=== PATIENT | male | born 1960 | race Caucasian/White ===

== ENCOUNTER 2018-02-17 04:26 | Inpatient (IN) ==
--- NOTE | 2018-02-17 05:53 | XR ---
EXAM DATE: 02/17/2018 5:47 AM EST AGE/SEX: 57 years / Male INDICATIONS: Chest pain. Shortness of breath. CLINICAL DATA: This is the patient's initial encounter. Patient reports that signs and symptoms have been present for 2 months and indicates a pain score of 9/10. MEDICAL/SURGICAL HISTORY: Carcinoma, lung. None. COMPARISON: No prior exams available for comparison. FINDINGS: A single AP view of the chest demonstrates an 8.4 cm left upper lobe pulmonary mass. The lungs are ot herwise clear. No effusions. Heart is normal in size. A mildly degenerative thoracic spine. CONCLUSION: 8.4 cm left upper lobe pulmonary mass. Electronically signed by: Eran Feldman MD Board Certified Radiologist 02/17/2018 5:51 AM EST
[2018-02-17 06:27] LABS: Baso % (Auto) 0.2 % (0.0-2.0); Eos # (Auto) 0.1 th/mm3 (0.0-0.4); Eos % (Auto) 0.5 % (0.0-4.0); Hematocrit 24.8 % (39.0-51.0); Hemoglobin 8.3 gm/dL (13.0-17.0); Lymph # (Auto) 1.3 th/mm3 (1.0-4.8); Lymph % (Auto) 6.9 % (9.0-44.0); Mean Corpuscular HGB Conc 33.7 % (32.0-36.0); Mean Corpuscular Hemoglobin 28.9 pg (27.0-34.0); Mean Corpuscular Volume 85.9 fL (80.0-100.0); Mean Platelet Volume 8.1 fL (7.0-11.0); Mono # (Auto) 0.9 th/mm3 (0.0-0.9); Mono % (Auto) 4.8 % (0.0-8.0); Neut # (Auto) 16.8 th/mm3 (1.8-7.7); Neut % (Auto) 87.6 % (16.0-70.0); Platelet Count 584 th/mm3 (150-450); Red Blood Count 2.88 mil/mm3 (4.50-5.90); Red Cell Distribution Width 14.8 % (11.6-17.2); White Blood Count 19.2 th/mm3 (4.0-11.0)
--- NOTE | 2018-02-17 06:37 | ED ---
HPI General Chief Complaint: Chest Pain Stated Complaint: Back pain Time Seen by Provider: 02/17/18 04:59 Source: patient and old records reviewed Mode of arrival: ambulatory Limitations: no limitations History of Present Illness HPI narrative: 57 M c/o chest pain for approx one week. + Radiation to the back reported. No fever or cough. Pt has hx RLE thrombus and is on Xarelto. + Exertional component. Pain can be severe at times. Pt reports recent diagnosis L lung mass. + Smoking history. Pt has not started CTX/RTX. Related Data Home Medications Medication Instructions Recorded Confirmed rivaroxaban [Xarelto] 15 mg PO BID 02/17/18 02/17/18 rosuvastatin 20 mg PO DAILY 02/17/18 02/17/18 Allergies Allergy/AdvReac Type Severity Reaction Status Date / Time No Known Allergies Allergy Verified 02/17/18 04:50 Review of Systems ROS: all other systems reviewed are negative [facility] Medical History Medical History Dvt femoral (deep venous thrombosis) (Acute) Lung cancer (Acute) Surgical History Surgical History Above knee amputation of right lower extremity (Acute) Social History Social History Substance History: No History of Abuse Second Hand Smoke Exposure: No Smoking Status: Former smoker How Often Do You Have a Drink Containing Alcohol: Never [facility] within the Last 8 Weeks: No Recent Out of Country Travel within the Last 8 Weeks: Yes Immunization History Tetanus Immunization: Unsure Exam Narrative Exam Narrative: GENERAL: 57 M, pleasant, moderate distress 2/2 pain and/or anxiety SKIN: Focused skin assessment warm/dry. HEAD: Atraumatic. Normocephalic. EYES: Pupils equal and round. No scleral icterus. No injection or drainage. ENT: No nasal bleeding or discharge. Mucous membranes pink and moist. NECK: Trachea midline. No JVD. CARDIOVASCULAR: Regular rate and rhythm. No murmur appreciated. RESPIRATORY: No accessory muscle use. Clear to auscultation. Breath sounds equal bilaterally. GASTROINTESTINAL: Abdomen soft, non-tender, nondistended. Hepatic and splenic margins not palpable. MUSCULOSKELETAL: RLE AKA. LLE normal. NEUROLOGICAL: Awake and alert. No obvious cranial nerve deficits. Motor grossly within normal limits. Normal speech. PSYCHIATRIC: Appropriate mood and affect; insight and judgment normal. Course Initial Documented Vital Signs Temperature 98.0 F 02/17/18 04:50 Pulse Rate 71 02/17/18 04:50 Respiratory Rate 18 02/17/18 04:50 Blood Pressure 140/76 02/17/18 04:50 Pulse Oximetry 100 02/17/18 04:50 Last Documented Vital Signs Temperature 98.7 F 02/17/18 20:00 Pulse Rate 72 02/17/18 20:00 Respiratory Rate 17 02/17/18 20:00 Blood Pressure 125/59 L 02/17/18 20:00 Pulse Oximetry 98 02/17/18 20:00 Sign Out Sign Out Data: Patient Sign Out occurred on 02/17/18 at 07:11. Patient's care was discussed, and care was transferred from Omari Noland MD to Alyssia Agosto. Sign Out Comment: Hb is 8.6 down from 13 in October. Last updated by Omari Noland MD at 02/17/18 06:57 Post-Handoff Eval: Patient is 57-year-old male who was presents to the emergency room with complaints of chest pain. Patient reports that he has been having intermittent chest pains for the past 4 months. Patient reports at this time, chest pain has been ongoing for the past 4 days. Patient reports that it is getting worse. Patient reports the chest pain radiates from his left chest to his back. Patient reports that pain feels a pressure but also a sharp and stabbing sensation to his chest. Patient reports that he was recently diagnosed with lung cancer as well as a DVT to his right lower extremity. Reports that he was told that he has venous insufficiency is to his right lower extremity so he went to [place] and had surgery. The surgery came with complications and he ended up with an above-knee amputation. Lab work as well as CTA was ordered to rule out aortic dissection. Ultimately, plan for admission to the hospital given his drop in his hemoglobin. Medical Decision Making MDM Narrative Medical decision making narrative: EKG: sinus, rate 74, sinus arrhythmia, normal During the course of the patients emergency department visit, the patients history, examination, and differential diagnosis were reviewed with the patient. The patient was placed on a hydraulic press operator with oximetry and frequent blood pressure monitoring. The patient had an IV access obtained and blood work sent for analysis. The patient was initially provided aspirin The patients laboratory studies were reviewed Radiology studies were reviewed and remarkable for: NO aortic dissection, patient does have a small pulmonary emboli, he also has a malignant left upper lobe mass with direct invasion into the adjacent vertebrae and ribs and posterior elements characteristic of metastatic disease with invasion into the mediastinum. Patient was notified of concerning findings on the CT report, he was given a copy of the studies. Reports that he does have follow up with an oncologist at [facility] tomorrow afternoon. Patient is currently chest pain-free at this time. Patient is currently taking Xarelto as he does have a DVT, - he does have a small PE. Plan to admit him to the hospital for further workup. Case reviewed with FP residents - accepts patient under Dr. Sandoval Medical Screen Exam Complete: Yes Emergency Medical Condition: Yes Medical Records Medical records reviewed: Yes I reviewed the patient's medical records. Lab Data Lab results reviewed: Yes I reviewed the patient's lab results. Result diagrams: 02/17/18 06:05 02/17/18 06:05 Lab Results 02/17/18 02/17/18 02/17/18 Range/Units 06:05 06:05 09:31 WBC 19.2 H (4.0-11.0) th/mm3 RBC 2.88 L (4.50-5.90) mil/mm3 Hgb 8.3 L (13.0-17.0) gm/dL Hct 24.8 L (39.0-51.0) % MCV 85.9 (80.0-100.0) fL MCH 28.9 (27.0-34.0) pg MCHC 33.7 (32.0-36.0) % RDW 14.8 (11.6-17.2) % Plt Count 584 H (150-450) th/mm3 MPV 8.1 (7.0-11.0) fL Neut % (Auto) 87.6 H (16.0-70.0) % Lymph % (Auto) 6.9 L (9.0-44.0) % Garland % (Auto) 4.8 (0.0-8.0) % Eos % (Auto) 0.5 (0.0-4.0) % Baso % (Auto) 0.2 (0.0-2.0) % Neut # (Auto) 16.8 H (1.8-7.7) th/mm3 Lymph # (Auto) 1.3 (1.0-4.8) th/mm3 Garland # (Auto) 0.9 (0.0-0.9) th/mm3 Eos # (Auto) 0.1 (0.0-0.4) th/mm3 Baso # (Auto) 0.0 (0.0-0.2) th/mm3 WBC Differential . Differential Comment Auto diff final PT 13.2 H (9.8-11.6) sec INR 1.3 Ratio APTT 27.4 (23.4-31.7) sec Sodium 137 (136-145) meq/L Potassium 3.6 (3.5-5.1) meq/L Chloride 104 (98-107) meq/L Carbon Dioxide 25.8 (21.0-32.0) meq/L Anion Gap 7 (5-15) meq/L BUN 7 (7-18) mg/dL Creatinine 0.74 (0.60-1.30) mg/dL Estimated GFR Greater than 89 (>89) mL/min Random Glucose 124 H (74-106) mg/dL Calcium 11.7 H* (8.5-10.1) mg/dL Calcium Adj for Albumin 12.7 H* (8.5-10.1) mg/dL Total Bilirubin 0.3 (0.2-1.0) mg/dL AST 14 L (15-37) U/L ALT 15 (12-78) U/L Alkaline Phosphatase 131 H (45-117) U/L Troponin I Less than 0.02 L (0.02-0.05) ng/mL Total Protein 8.0 (6.4-8.2) g/dL Albumin 2.8 L (3.4-5.0) g/dL Lipase 73 (73-393) U/L 02/17/18 02/17/18 Range/Units 11:00 16:05 WBC (4.0-11.0) th/mm3 RBC (4.50-5.90) mil/mm3 Hgb (13.0-17.0) gm/dL Hct (39.0-51.0) % MCV (80.0-100.0) fL MCH (27.0-34.0) pg MCHC (32.0-36.0) % RDW (11.6-17.2) % Plt Count (150-450) th/mm3 MPV (7.0-11.0) fL Neut % (Auto) (16.0-70.0) % Lymph % (Auto) (9.0-44.0) % Garland % (Auto) (0.0-8.0) % Eos % (Auto) (0.0-4.0) % Baso % (Auto) (0.0-2.0) % Neut # (Auto) (1.8-7.7) th/mm3 Lymph # (Auto) (1.0-4.8) th/mm3 Garland # (Auto) (0.0-0.9) th/mm3 Eos # (Auto) (0.0-0.4) th/mm3 Baso # (Auto) (0.0-0.2) th/mm3 WBC Differential Differential Comment PT (9.8-11.6) sec INR Ratio APTT (23.4-31.7) sec Sodium (136-145) meq/L Potassium (3.5-5.1) meq/L Chloride (98-107) meq/L Carbon Dioxide (21.0-32.0) meq/L Anion Gap (5-15) meq/L BUN (7-18) mg/dL Creatinine (0.60-1.30) mg/dL Estimated GFR (>89) mL/min Random Glucose (74-106) mg/dL Calcium (8.5-10.1) mg/dL Calcium Adj for Albumin (8.5-10.1) mg/dL Total Bilirubin (0.2-1.0) mg/dL AST (15-37) U/L ALT (12-78) U/L Alkaline Phosphatase (45-117) U/L Troponin I Less than 0.02 L Less than 0.02 L (0.02-0.05) ng/mL Total Protein (6.4-8.2) g/dL Albumin (3.4-5.0) g/dL Lipase (73-393) U/L Imaging Data Attestation: I personally reviewed and interpreted this imaging study as follows : Radiologist's impression: Abdomen/Pelvis CT 02/17/18 00:00 CONCLUSION: No metastatic disease or other acute abnormality within the abdomen or pelvis. Cervical Spine X-Ray 02/17/18 00:00 CONCLUSION: Chest X-Ray 02/17/18 05:24 CONCLUSION: 8.4 cm left upper lobe pulmonary mass. Thoracic Aorta CT 02/17/18 07:25 CONCLUSION: 1. Malignant left upper lobe mass with direct invasion of the adjacent vertebrae and ribs and posterior elements characteristic of local spread of metastatic disease with direct invasion of the mediastinum. 2. Metastatic adenopathy within the left hilum and mediastinum. 3. There are lung nodules on the left side highly suspicious for metastatic disease as well. 4. Small pulmonary embolus left lower lobe pulmonary artery. ECG Data EKG Prior to Arrival: No Attestation: I personally reviewed and interpreted this ECG as follows: Prior ECG tracings: available for review Interpretation: EKG at 0556: NSR at 74bpm, qt/qtc: 362/390, no acute st or t wave changes Discharge Plan Discharge Disposition Patient Disposition: ED Admit(ED Internal Use Only) Discharge Condition Condition: Stable Discharge Order Discharge Orders: ED Use Only Admit Order (Routine); Ordered 02/17/18 Ordered By: Alyssia Agosto Discharge Details Diagnosis: Chest pain, Pulmonary emboli, Lung mass Physicians Team ED Provider: Alyssia Agosto Primary Care Provider: UNKNOWN, Attending Provider: Eddie Sandoval Other Providers: Mario Martinez Status ED Status: Left Department Discharge Information Discharge Date/Time: 02/17/18 12:45 Addendum entered and electronically signed by Alyssia Agosto 02/17/18 09:16: patient was started on heparin gtt for tx of small pe
[2018-02-17 07:08] LABS: Alanine Aminotransferase 15 U/L (12-78); Albumin 2.8 g/dL (3.4-5.0); Alkaline Phosphatase 131 U/L (45-117); Anion Gap 7 meq/L (5-15); Aspartate Aminotransferase 14 U/L (15-37); Blood Urea Nitrogen 7 mg/dL (7-18); Calcium 11.7 mg/dL (8.5-10.1); Carbon Dioxide 25.8 meq/L (21.0-32.0); Chloride 104 meq/L (98-107); Glomerular Filtration Rate Greater Than 89 mL/min (>89); Glucose,Random 124 mg/dL (74-106); Lipase 73 U/L (73-393); Potassium 3.6 meq/L (3.5-5.1); Sodium 137 meq/L (136-145)
[2018-02-17] MEDS ORDERED: Etomidate Inj 20 MG/10 ML Ampul IV.PUSH ONE (07:22)
--- NOTE | 2018-02-17 08:39 | CT ---
EXAM DATE: 02/17/2018 8:23 AM EST AGE/SEX: 57 years / Male INDICATIONS: Chest pain for five days. CLINICAL DATA: This is the patient's initial encounter. Patient reports that signs and symptoms have been present for 4 - 6 days and indicates a pain score of 7/10. MEDICAL/SURGICAL HISTORY: Deep venous thrombosis. Carcinoma, lung. . Right leg amputation. RADIATION DOSE: 5.27 CTDI (mGy) COMPARISON: No prior exams available for comparison. TECHNIQUE: Volumetric scanning was performed using a multi-row detector CT scanner during bolus infu temitope of 99 ml Omnipaque 350 (iohexol) nonionic water-soluble contrast as a single exam dose. The da ta was post processed with a variety of visualization algorithms including full volume maximum intens ity projection, multi-planar sliding thin slab reformation, curved planar reformation, and surface re ndering techniques. Using automated exposure control and adjustment of the mA and/or kV according to patient size, radiation dose was kept as low as reasonably achievable to obtain optimal diagnostic q uality images. DICOM format image data is available electronically for review and comparison. FINDINGS: There are COPD changes in the lungs to a moderate degree and there is a large malignant appearing mas s left upper lobe posteromedial measures 6.9 cm in size. The malignant mass invades the adjacent ribs and vertebral bodies. Approximate 2.8 cm lytic lesion is seen involving the left side of T3 vertebra e and there is a destructive lesion involving the left posterior third rib. There is also probable in volvement of the T2 vertebrae in addition to posterior elements on the left side at these levels. The re is direct invasion into the posterior portion of the mediastinal as well extending partially into the prevertebral location. There is metastatic adenopathy within the anterior mediastinum measures 1. 3 cm in size with separate adenopathy in the AP window multiple lymph nodes the largest one measures 2.3 cm in size. There is also metastatic adenopathy in the left hilum measures 2.1 cm in size with ad ditional left hilar lymph nodes circumferentially surrounding the left pulmonary arteries. There are additional tiny lymph nodes in pretracheal and subcarinal location most likely benign, however nonspe cific. There appears to be a small pulmonary embolus within one of the left lower lobe pulmonary anil jordy There are 3 separate nodular densities adjacent to one of the left lower lobe measuring 5 mm eac h with approximate 7 mm nodule within lingula. There is extension approximate 5 to 6 mm nodule within lingula as well. There are irregular densities adjacent to right minor fissure and middle lobe proba ble areas of scar. There is no evidence for aortic dissection. Coronary artery calcifications are seen typically seen wi th coronary artery disease and clinical correlation and evaluation is suggested. The takeoff of the celiac SMA and renal arteries appear intact. There is moderate atherosclerotic ranulfo quing at the origin of the right renal artery. There is no evidence for aneurysm. Atherosclerotic ranulfo quing extends into common iliac arteries without any significant stenosis. CONCLUSION: 1. Malignant left upper lobe mass with direct invasion of the adjacent vertebrae and ribs and narrative writer ior elements characteristic of local spread of metastatic disease with direct invasion of the mediast inum. 2. Metastatic adenopathy within the left hilum and mediastinum. 3. There are lung nodules on the left side highly suspicious for metastatic disease as well. 4. Small pulmonary embolus left lower lobe pulmonary artery. Electronically signed by: Rajinder Isaacs MD Board Certified Radiologist 02/17/2018 8:38 AM EST
[2018-02-17] MEDS ORDERED: Heparin Drip 25,000 UNIT/250 ML BAG IV.CONT PRN (08:52)
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
[2018-02-17 09:58] LABS: Activated Partial Thrombo Time 27.4 sec (23.4-31.7); INR 1.3 Ratio; Prothrombin Time 13.2 sec (9.8-11.6)
[2018-02-17] MEDS ORDERED: Acetaminophen 325 MG Tablet PO PRN (10:23)
[2018-02-17] MEDS ORDERED: Bisacodyl 10 MG Supp RECTAL PRN (10:23)
[2018-02-17] MEDS: Sod Chloride 0.9% Inj 1,000 ML IV.CONT SCH ×2 (11:26→21:21)
[2018-02-17] MEDS ORDERED: Ibuprofen 400 MG Tablet PO PRN (12:18)
[2018-02-17] MEDS ORDERED: Naloxone Inj 0.4 MG/ML Vial IV.PUSH PRN (12:18)
[2018-02-17] MEDS: Morphine Inj 4 MG/ML Vial IV.PUSH PRN (14:53)
--- NOTE | 2018-02-17 19:43 | MB ---
cc: Mario Martinez MD DATE: 02/17/2018 ATTENDING PHYSICIAN: ____. REASON FOR CONSULTATION: Oncology consult to render opinion regarding the patient with lung mass. HISTORY OF PRESENT ILLNESS: The patient is a 57-year-old male from [place] who presented to the hospital complaining of increased left chest wall pain and back pain. He was admitted to [facility] around 10/2017 for evaluation of right leg pain. He was found to have right lower extremity peripheral arterial disease. During the hospital stay, he was found to have left lung mass. The patient had a biopsy and was told that he had cancer. The patient stated his lung mass was small. He did not have any insurance. He went back to [place] to have a procedure done for the peripheral arterial disease. He stated that he was supposed to come back after his procedure to follow up with his oncologist. His right lower extremity surgery was complicated and he ended up with an above-knee amputation. He came back to the [facility] on 02/10/2018. He stated he has been having left chest wall pain for at least 3 months. However, over the last 1 week, his pain has increased significantly he came into the hospital because of worsening pain. He has mild shortness of breath. He denies significant cough. He denies any focal numbness or weakness of his extremities. He denies any bowel or urinary incontinence. He has lost about 10 pounds. He denies any fever or chills. He has had no headache or visual changes. He denies nausea, vomiting. Denies any abdominal pain. On presentation, A CT angiogram showed a large left upper lobe lung mass invaded to the vertebral body and posterior ribs with multiple lung nodules in the left lower lobe. PAST MEDICAL HISTORY: 1. Lung cancer. 2. Peripheral artery disease. 3. Hyperlipidemia. 4. Right lower extremity deep venous thrombosis. PAST SURGICAL HISTORY: 1. Recent right above-knee amputation 01/08/2018. 2. Facial reconstruction surgery. 3. Right ribs reconstructive surgery. FAMILY HISTORY: No cancer. Two sisters and 3 children, all healthy. Parents both alive. SOCIAL HISTORY: Smoked a pack a day for 20 years, quit about a year ago. He also quit alcohol. He lives with his in [place]. ALLERGIES: NO KNOWN DRUG ALLERGIES. CURRENT MEDICATIONS: 1. Lipitor. 2. Lovenox. 3. Shila-Colace. REVIEW OF SYSTEMS: CONSTITUTIONAL: As above. EYES: Negative. ENT: Negative. CARDIOVASCULAR: Denies chest pressure or palpitation. RESPIRATORY: As above. GASTROINTESTINAL: Negative. GENITOURINARY: Negative. MUSCULOSKELETAL: As above. HEMATOLOGY: Negative. ENDOCRINE: Negative. DERMATOLOGY: Negative. PSYCHIATRIC: Negative. NEUROLOGIC: As above. PHYSICAL EXAMINATION: VITAL SIGNS: Temperature 99, blood pressure 120/60, O2 saturation 100% on room air. GENERAL: He is alert, oriented x 3, no acute distress. HEENT: Atraumatic, normocephalic. Pupils are equal, round, reactive to light. Extraocular muscles are intact. No scleral icterus. Oropharynx dry mucosa. No lesion, no thrush. No mucositis. NECK: No thyromegaly. No palpable mass. LYMPHATIC: No palpable cervical, clavicular, axillary, or groin. CARDIOVASCULAR: Regular. S1, S2 normal. LUNGS: Slight decreased breath sounds left lung. No significant wheezes. ABDOMEN: Soft, nontender. Cannot palpate liver, spleen. EXTREMITIES: Positive clubbing. Right lower extremity above-knee amputation noted. NEUROLOGIC: Nonfocal. SKIN: No rash or petechiae. LABORATORY DATA: Reviewed his blood work drawn during this hospital stay. ASSESSMENT: 1. Left lung mass consistent with lung cancer. He was admitted to [facility] in October. Reportedly, he was found to have a left lung mass and had a biopsy. He was told that he had lung cancer, but he could not provide specific details. He now presented with increased left chest wall pain and back pain. CT showed a large 6.9 cm mass in the left upper lobe, invading the adjacent ribs and vertebral bodies. There was a 2.8 cm lytic lesion involving the left side of the T3 vertebral body. There was also a destructive lesion involving left posterior third rib. There was probable involvement of T2 vertebral body, in addition, the posterior element of left side. There was direct invasion in the posterior portion of the mediastinum, extending partially into the prevertebral location. There was metastatic adenopathy within the anterior mediastinum as well as the left hilum. There are also multiple small nodules in the left lower lobe. This is most consistent with primary non-small cell lung cancer. Clinically, this appeared to be stage IV metastatic disease. We have requested a pathology report from [facility]. If it is unavailable or inconclusive, he is going to need a biopsy of the lung mass. 2. Back pain and left chest wall pain due to the lung mass invading the posterior ribs and vertebral body. There appeared to be a destructive lesion involving the vertebral body. Clinically he has no neurologic symptoms and there is no evidence of cord compression. I am going to have him get an MRI of thoracic spine for further evaluation. If there is cord involvement may need to consult neurosurgery to see if he needs a surgical intervention. The patient likely is going to need palliative radiation. 3. Hypercalcemia, likely due to bone metastasis. We will get a bone scan for further evaluation. We will also check a PTH and a peptide related PTH. He is currently receiving IV fluid hydration. If he still has significant hypercalcemia we will give him Zometa. 4. Anemia. He recently had an above-knee amputation. Anemia, likely due to blood loss. We will proceed with anemia workup. 5. Leukocytosis, likely reactive due to underlying cancer. 6. History of right lower extremity deep venous thrombosis. He has been on Xarelto. He is now on Lovenox. 7. Peripheral arterial disease. 8. Hyperlipidemia. RECOMMENDATIONS: 1. Extensive discussion with the patient and his . 2. Request pathology report from [facility]. 3. Arrange for CT abdomen and pelvis, as well as bone scan. 4. We will get MRI of thoracic spine 5. Consider consulting neurosurgery if there is any evidence of cord involvement. 6. Anemia workup. 7. Consider giving him Zometa if he has persistent hypercalcemia. Thank you, , for asking me to see this patient. MD PAVITHRA Whalen/jovita/garrick , 06:18 PM , 06:38 PM AYE
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
--- NOTE | 2018-02-17 19:45 | CT ---
EXAM DATE: 02/17/2018 7:38 PM EST AGE/SEX: 57 years / Male INDICATIONS: Metastases lung cancer CLINICAL DATA: This is the patient's initial encounter. Patient reports that signs and symptoms have been present for 1 day and indicates a pain score of 0/10. MEDICAL/SURGICAL HISTORY: Deep venous thrombosis. Carcinoma, lung. None. ORAL CONTRAST: No oral contrast ingested. RADIATION DOSE: 6.37 CTDI (mGy) COMPARISON: [facility], CTA THOR ABD AORTA W CONTRAST W 3D, 02/17/2018. . TECHNIQUE: Multiple contiguous axial images were obtained through the abdomen and pelvis following b olus infusion of 69 ml Omnipaque 350 (iohexol) nonionic water-soluble contrast as a single exam dos e. No oral contrast ingested. Using automated exposure control and adjustment of the mA and/or kV ac cording to patient size, radiation dose was kept as low as reasonably achievable to obtain optimal di agnostic quality images. DICOM format image data is available electronically for review and comparis on. FINDINGS: Liver: The liver has a homogeneous density without space-occupying lesion. There is no dilation of th e biliary tree. Spleen: Homogeneous density without enlargement. Pancreas: Unremarkable without mass or calcification. Kidneys: Normal in size and shape. No evidence of mass or hydronephrosis. Adrenal Glands: Unremarkable. Aorta: There is atherosclerosis of the abdominal aorta and branch vessels. No aneurysm. Bowel/Mesentery: The bowel loops are grossly unremarkable. The cecum and sigmoid colon have a normal configuration. Abdominal Wall: Intact. Retroperitoneum: No evidence of adenopathy in the retrocrural, para-aortic, or deep pelvic regions. Bladder: Contours are smooth. Reproductive Organs: No abnormal masses or calcifications seen. Inguinal: The inguinal region is unremarkable without evidence of adenopathy. Bony Structures: No lytic or sclerotic lesion or other acute abnormality seen of the visualized osse ous structures. CONCLUSION: No metastatic disease or other acute abnormality within the abdomen or pelvis. Electronically signed by: Neno Hutson MD Board Certified Radiologist 02/17/2018 7:44 PM EST
--- NOTE | 2018-02-17 21:17 | ECG ---
Date Performed: 02/17/2018 Time Performed: 18:10:26 PTAGE: 57 years EKG: Sinus rhythm WITH SINUS ARRHYTHMIA PACS NORMAL ECG PREVIOUS TRACING : 02/17/2018 11.56 Since the previous tracing, no significant change noted DOCTOR: Lennox Bran Interpretating Date/Time 02/17/2018 21:16:00
[2018-02-17] MEDS: Senna/Docusate Sodium 8.6/50 MG Tablet PO SCH (21:19)
[2018-02-17] MEDS: Enoxaparin Inj 80 MG/0.8 ML Syringe SQ SCH (21:20)
--- NOTE | 2018-02-17 21:37 | ECG ---
Date Performed: 02/17/2018 Time Performed: 11:56:12 PTAGE: 57 years EKG: Sinus rhythm WITH SINUS ARRHYTHMIA NORMAL ECG PREVIOUS TRACING : 02/17/2018 05.56 Since the previous tracing, no significant change noted DOCTOR: Lennox Bran Interpretating Date/Time 02/17/2018 21:35:05
[2018-02-18] MEDS: Morphine Inj 4 MG/ML Vial IV.PUSH PRN (00:10)
[2018-02-18] MEDS: Sod Chloride 0.9% Inj 1,000 ML IV.CONT SCH ×2 (05:42→18:32)
[2018-02-18 06:03] LABS: Baso % (Auto) 0.2 % (0.0-2.0); Eos # (Auto) 0.1 th/mm3 (0.0-0.4); Eos % (Auto) 0.4 % (0.0-4.0); Hematocrit 22.7 % (39.0-51.0); Hemoglobin 7.5 gm/dL (13.0-17.0); Lymph # (Auto) 1.4 th/mm3 (1.0-4.8); Lymph % (Auto) 9.1 % (9.0-44.0); Mean Corpuscular HGB Conc 33.2 % (32.0-36.0); Mean Corpuscular Hemoglobin 28.4 pg (27.0-34.0); Mean Corpuscular Volume 85.7 fL (80.0-100.0); Mean Platelet Volume 8.3 fL (7.0-11.0); Mono # (Auto) 1.1 th/mm3 (0.0-0.9); Mono % (Auto) 6.8 % (0.0-8.0); Neut % (Auto) 83.5 % (16.0-70.0); Platelet Count 526 th/mm3 (150-450); Red Blood Count 2.65 mil/mm3 (4.50-5.90); Red Cell Distribution Width 15.3 % (11.6-17.2); White Blood Count 15.6 th/mm3 (4.0-11.0)
[2018-02-18 06:19] LABS: Alanine Aminotransferase 11 U/L (12-78); Albumin 2.5 g/dL (3.4-5.0); Anion Gap 7 meq/L (5-15); Aspartate Aminotransferase 10 U/L (15-37); Blood Urea Nitrogen 8 mg/dL (7-18); Calcium 11.1 mg/dL (8.5-10.1); Carbon Dioxide 25.9 meq/L (21.0-32.0); Chloride 105 meq/L (98-107); Glomerular Filtration Rate Greater Than 89 mL/min (>89); Glucose,Random 81 mg/dL (74-106); Iron 18 mcg/dL (65-175); Potassium 4.2 meq/L (3.5-5.1); Sodium 138 meq/L (136-145)
[2018-02-18 06:44] LABS: % Iron Saturation 9.2 % (20-50); Alkaline Phosphatase 121 U/L (45-117); Carcinoembryonic Antigen 1.5 ng/mL (0.2-5.0); Ferritin 605 ng/mL (26-388); Folate 10.3 ng/mL (3.1-17.5); Total Iron Binding Capacity 196 mcg/dL (250-450); Total Protein 7.2 g/dL (6.4-8.2); Vitamin B12 607 pg/mL (193-986)
[2018-02-18] MEDS: Senna/Docusate Sodium 8.6/50 MG Tablet PO SCH ×2 (09:36→20:16)
[2018-02-18] MEDS: Enoxaparin Inj 80 MG/0.8 ML Syringe SQ SCH ×2 (09:37→20:15)
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
--- NOTE | 2018-02-18 11:49 | P.PNFP ---
Subjective Interval history: Patient seen and examined today. Patient reports continued pain in his back, however improved at this time following medication administration. Denies nausea, vomiting, fever, chills, don pain, chest pain, shortness breath, lightheadedness, dizziness. Data Warehousing Manager used: Brit #[id number] <Sherly MorganEddie - 02/18/18 14:24> Results - Labs Result diagrams: 02/19/18 03:21 02/19/18 03:21 <JaimeEddie Natasha - 02/19/18 15:29> Abnormal lab results 02/19/18 02/19/18 Range/Units 03:21 03:21 WBC 12.0 H (4.0-11.0) th/mm3 RBC 2.87 L (4.50-5.90) mil/mm3 Hgb 8.0 L (13.0-17.0) gm/dL Hct 25.2 L (39.0-51.0) % MCHC 31.8 L (32.0-36.0) % Plt Count 555 H (150-450) th/mm3 Neut % (Auto) 76.2 H (16.0-70.0) % Neut # (Auto) 9.2 H (1.8-7.7) th/mm3 Calcium 11.6 H* (8.5-10.1) mg/dL Calcium Adj for Albumin 12.7 H* (8.5-10.1) mg/dL AST 12 L (15-37) U/L ALT 11 L (12-78) U/L Albumin 2.6 L (3.4-5.0) g/dL Short CBC 02/19/18 Range/Units 03:21 WBC 12.0 H (4.0-11.0) th/mm3 Hgb 8.0 L (13.0-17.0) gm/dL Hct 25.2 L (39.0-51.0) % Plt Count 555 H (150-450) th/mm3 BMP 02/19/18 03:21 Sodium 138 Potassium 3.8 Chloride 105 Carbon Dioxide 27.6 BUN 10 Creatinine 0.79 Calcium 11.6 H* Liver Function 02/19/18 Range/Units 03:21 Total Bilirubin 0.2 (0.2-1.0) mg/dL AST 12 L (15-37) U/L ALT 11 L (12-78) U/L Alkaline Phosphatase 109 (45-117) U/L Albumin 2.6 L (3.4-5.0) g/dL <Eddie Sandoval L - 02/19/18 15:29> Abnormal lab results 02/17/18 02/18/18 02/18/18 Range/Units 16:05 05:29 05:29 WBC 15.6 H (4.0-11.0) th/mm3 RBC 2.65 L (4.50-5.90) mil/mm3 Hgb 7.5 L (13.0-17.0) gm/dL Hct 22.7 L (39.0-51.0) % Plt Count 526 H (150-450) th/mm3 Neut % (Auto) 83.5 H (16.0-70.0) % Neut # (Auto) 13.0 H (1.8-7.7) th/mm3 Nobles # (Auto) 1.1 H (0.0-0.9) th/mm3 Calcium 11.1 H (8.5-10.1) mg/dL Iron 18 L (65-175) mcg/dL TIBC 196 L (250-450) mcg/dL % Saturation 9.2 L (20-50) % Ferritin 605 H (26-388) ng/mL AST 10 L (15-37) U/L ALT 11 L (12-78) U/L Alkaline Phosphatase 121 H (45-117) U/L Troponin I Less than 0.02 L (0.02-0.05) ng/mL Albumin 2.5 L (3.4-5.0) g/dL PTH Intact (12.4-76.8) pg/mL 02/18/18 Range/Units 05:29 WBC (4.0-11.0) th/mm3 RBC (4.50-5.90) mil/mm3 Hgb (13.0-17.0) gm/dL Hct (39.0-51.0) % Plt Count (150-450) th/mm3 Neut % (Auto) (16.0-70.0) % Neut # (Auto) (1.8-7.7) th/mm3 Nobles # (Auto) (0.0-0.9) th/mm3 Calcium (8.5-10.1) mg/dL Iron (65-175) mcg/dL TIBC (250-450) mcg/dL % Saturation (20-50) % Ferritin (26-388) ng/mL AST (15-37) U/L ALT (12-78) U/L Alkaline Phosphatase (45-117) U/L Troponin I (0.02-0.05) ng/mL Albumin (3.4-5.0) g/dL PTH Intact Less than 6.3 L (12.4-76.8) pg/mL Short CBC 02/18/18 Range/Units 05:29 WBC 15.6 H (4.0-11.0) th/mm3 Hgb 7.5 L (13.0-17.0) gm/dL Hct 22.7 L (39.0-51.0) % Plt Count 526 H (150-450) th/mm3 BMP 02/18/18 05:29 Sodium 138 Potassium 4.2 Chloride 105 Carbon Dioxide 25.9 BUN 8 Creatinine 0.75 Calcium 11.1 H Cardiac Enzymes 02/17/18 Range/Units 16:05 Troponin I Less than 0.02 L (0.02-0.05) ng/mL Liver Function 02/18/18 Range/Units 05:29 Total Bilirubin 0.4 (0.2-1.0) mg/dL AST 10 L (15-37) U/L ALT 11 L (12-78) U/L Alkaline Phosphatase 121 H (45-117) U/L Albumin 2.5 L (3.4-5.0) g/dL <Eddie Ni - 02/18/18 11:49> - Imaging Impressions Abdomen/Pelvis CT 02/17/18 00:00 CONCLUSION: No metastatic disease or other acute abnormality within the abdomen or pelvis. Cervical Spine X-Ray 02/17/18 00:00 CONCLUSION: <Eddie Ni - 02/18/18 11:49> Physical Exam Vital signs: Vital Signs 02/18/18 16:00 02/18/18 16:30 02/18/18 17:02 Temperature 98.2 F Pulse Rate 74 Respiratory Rate 20 20 Blood Pressure 129/57 L Pulse Oximetry 99 98 02/18/18 19:39 02/18/18 20:00 02/18/18 23:15 Temperature 98.4 F 98.4 F Pulse Rate 72 66 Respiratory Rate 16 16 18 Blood Pressure 136/77 104/60 Pulse Oximetry 97 97 02/19/18 00:00 02/19/18 03:55 02/19/18 05:24 Temperature 97.6 F Pulse Rate 59 L 57 L 62 Respiratory Rate 18 Blood Pressure 106/60 Pulse Oximetry 98 02/19/18 08:00 02/19/18 11:37 02/19/18 12:00 Temperature 97.7 F 98.8 F Pulse Rate 68 72 Respiratory Rate 18 18 Blood Pressure 129/67 129/60 Pulse Oximetry 100 98 99 Intake & Output 02/18/18 02/19/18 02/19/18 18:59 06:59 18:59 Intake Total 1840 / 1840 280 / 280 Balance 1840 / 1840 280 / 280 Weight 56 kg Intake: IV 1000 / 1000 NS Inj 1,000 ML @ 105 mls/hr IV 1000 / 1000 .CONT .Q9H32M [facility] Rx#:[id number] Oral 840 / 840 280 / 280 Other: # Voids 5 3 # Bowel Movements 0 0 <Eddie Sandoval L - 02/19/18 15:29> Vital Signs 02/17/18 12:07 02/17/18 16:00 02/17/18 20:00 Temperature 99.0 F 98.7 F Pulse Rate 67 74 78 Respiratory Rate 18 16 17 Blood Pressure 130/64 121/60 125/59 L Pulse Oximetry 100 100 98 02/18/18 00:00 02/18/18 04:00 02/18/18 08:00 Temperature 98.2 F 97.9 F 98.1 F Pulse Rate 74 73 74 Respiratory Rate 17 17 20 Blood Pressure 118/59 L 113/56 L 113/57 L Pulse Oximetry 97 99 98 02/18/18 09:35 Temperature Pulse Rate Respiratory Rate Blood Pressure Pulse Oximetry 99 Intake & Output 02/17/18 02/18/18 02/18/18 18:59 06:59 18:59 Intake Total 520 / 520 1999 Output Total 200 / 200 Balance 320 / 320 1999 Weight 57 kg Intake: IV 1999 NS Inj 1,000 ML @ 105 mls/hr IV 1999 .CONT .Q9H32M [facility] Rx#:[id number] Oral 520 / 520 0 / 0 Output: Urine 200 / 200 Other: # Voids 0 # Bowel Movements 0 <Eddie Ni - 02/18/18 11:49> Narrative: GENERAL: Laying in bed, no acute distress. Cymro speaking with a moderate amount of Honduran, kaiawhina kura kaupapa maori used. SKIN: Warm and dry. Right lower leg amputation with clean, dry, intact wrapping. On inspection stump in nonerythematous, nontender, no purulent drainage. HEAD: Atraumatic. Normocephalic. EYES: Pupils equal and round. No scleral icterus. No injection or drainage. ENT: No nasal bleeding or discharge. Mucous membranes pink and moist. NECK: Trachea midline. No JVD. CARDIOVASCULAR: Regular rate and rhythm. RESPIRATORY: No accessory muscle use. Clear to auscultation. Breath sounds equal bilaterally. GASTROINTESTINAL: Abdomen soft, non-tender, nondistended. Hepatic and splenic margins not palpable. MUSCULOSKELETAL: Extremities without clubbing, cyanosis, or edema. No obvious deformities. NEUROLOGICAL: Awake and alert. No obvious cranial nerve deficits. Motor grossly within normal limits. PSYCHIATRIC: Appropriate mood and affect; insight and judgment normal. <Eddie Ni - 02/18/18 14:24> Assessment and Plan - Assessment (1) Chest pain Code(s): R07.9 - Chest pain, unspecified Status: Acute (2) Pulmonary emboli Code(s): I26.99 - Other pulmonary embolism without acute cor pulmonale Status : Acute (3) Lung mass Code(s): R91.8 - Other nonspecific abnormal finding of lung field Status: Acute (4) Hypercalcemia Code(s): E83.52 - Hypercalcemia Status: Acute <Eddie Sandoval Natasha - 02/19/18 15:29> (1) Chest pain Code(s): R07.9 - Chest pain, unspecified Status: Acute Plan: Patient presented for chest pain radiating to back. CTA negative for dissection , however direct invasion of adjacent vertebrae and ribs from lung mass. Initial troponin negative. EKG negative. Chest pain likely secondary to oncologic disease. [place] workup negative. -Opioid pain scale (2) Pulmonary emboli Code(s): I26.99 - Other pulmonary embolism without acute cor pulmonale Status : Acute Plan: Small left-sided pulmonary embolus. -We will hold Xarelto for now and start Lovenox at approximately 1 mg/kg every 12 hours due to known malignancy and pulmonary embolism (3) Lung mass Code(s): R91.8 - Other nonspecific abnormal finding of lung field Status: Acute Plan: Left upper lobe 6.9 cm mass. Patient reports he had had a biopsy done at [facility] in October. Unsure of type of cancer. Has not been followed outpatient. Likely cause of chest pain. Initial radiographic findings of metastases. -Request medical records from [facility] -Oncology consulted * Follow-up bone scan * Follow-up PTH RP * Unable to obtain MRI due to shrapnel and face to evaluate for cord compression , clinically no evidence of cord compression * Zometa if persistent hypercalcemia (4) Hypercalcemia Code(s): E83.52 - Hypercalcemia Status: Acute Plan: Adjusted calcium 12.7 on admission. Likely secondary to oncologic disease. Can consider Zometa if persistent hypercalcemia. PTH low. -IV hydration -Follow-up PTH RP <Eddie Ni - 02/18/18 14:19> - Attending Attestation Patient seen and examined with resident team this morning. Agree with documentation above. Patient with continued chest and back pain secondary to malignant condition. Attempting to acquire records from [facility] regarding his biopsy of lung mass. Will continue to manage his pain. Oncology is on board and helping to co-manage. Bone scan pending. <Eddie Sandoval - 02/19/18 15:29>
--- NOTE | 2018-02-18 13:13 | NM ---
INDICATIONS: Lung cancer. CLINICAL DATA: This is the patient's initial encounter. Patient reports that signs and symptoms have been present for 1 week and indicates a pain score of 3/10. MEDICAL/SURGICAL HISTORY: Carcinoma, lung. None. Right above the knee amputation. [place] [facility] [place]17[place]. . TECHNIQUE: . . Whole body bone scan was performed at 2-3 hours. No correlative bone scan available for comparison. DOSE: 31 mCi Tc99m MDP IV FINDINGS: There is evidence for prior amputation on the right side above the knee. Increased activity seen over lapping the right symphysis pubis and the stability ramus probably due to overlap the patient's bladd er at this site. The patient's CT examination did not demonstrate any lesions within the bony structu res at this site. CONCLUSION: 1. No definite evidence for metastatic disease. Electronically signed by: Rajinder Isaacs MD Board Certified Radiologist 02/18/2018 1:12 PM EST
--- NOTE | 2018-02-18 23:16 | ECG ---
Date Performed: 02/17/2018 Time Performed: 05:56:43 PTAGE: 57 years EKG: Sinus rhythm WITH SINUS ARRHYTHMIA NORMAL ECG INTERPRETATION BASED ON A DEFAULT AGE OF 40 YEARS NO PREVIOUS TRACING DOCTOR: Curt Noland Interpretating Date/Time 02/18/2018 23:15:06
[2018-02-19] MEDS: Sod Chloride 0.9% Inj 1,000 ML IV.CONT SCH ×3 (02:40→23:30)
[2018-02-19 03:49] LABS: Baso % (Auto) 0.2 % (0.0-2.0); Eos # (Auto) 0.2 th/mm3 (0.0-0.4); Eos % (Auto) 1.5 % (0.0-4.0); Hematocrit 25.2 % (39.0-51.0); Lymph # (Auto) 1.8 th/mm3 (1.0-4.8); Mean Corpuscular HGB Conc 31.8 % (32.0-36.0); Mean Platelet Volume 8.4 fL (7.0-11.0); Mono # (Auto) 0.9 th/mm3 (0.0-0.9); Mono % (Auto) 7.1 % (0.0-8.0); Neut # (Auto) 9.2 th/mm3 (1.8-7.7); Neut % (Auto) 76.2 % (16.0-70.0); Platelet Count 555 th/mm3 (150-450); Red Blood Count 2.87 mil/mm3 (4.50-5.90)
[2018-02-19 04:19] LABS: Alanine Aminotransferase 11 U/L (12-78); Albumin 2.6 g/dL (3.4-5.0); Alkaline Phosphatase 109 U/L (45-117); Anion Gap 5 meq/L (5-15); Aspartate Aminotransferase 12 U/L (15-37); Blood Urea Nitrogen 10 mg/dL (7-18); Calcium 11.6 mg/dL (8.5-10.1); Carbon Dioxide 27.6 meq/L (21.0-32.0); Chloride 105 meq/L (98-107); Glomerular Filtration Rate Greater Than 89 mL/min (>89); Glucose,Random 87 mg/dL (74-106); Potassium 3.8 meq/L (3.5-5.1); Sodium 138 meq/L (136-145); Total Protein 7.4 g/dL (6.4-8.2)
[2018-02-19] MEDS: Senna/Docusate Sodium 8.6/50 MG Tablet PO SCH ×2 (08:30→21:16)
[2018-02-19] MEDS: Enoxaparin Inj 80 MG/0.8 ML Syringe SQ SCH (08:30)
[2018-02-19] MEDS ORDERED: Zoledronic Acid Inj 4 MG in Sodium Chlor 0.9% Inj 150 ML IV.SIG ONE ×2 (09:00→11:00)
[2018-02-19] MEDS ORDERED: Sodium Chlor 0.9% Inj 500 ML IV.SIG ONE (10:00)
--- NOTE | 2018-02-19 11:24 | P.PNFP ---
Subjective Interval history: Patient seen and examined at bedside this morning. He still confirms some chest pain with movement but states that the Lovejoy 7.5 pills have been helping. He understands the plan moving forward with hematology oncology. He will be getting a port placed tomorrow by interventional radiology to start his chemotherapy. All questions were answered appropriately at bedside. He denies any chest pain, shortness of breath, abdominal pain, leg pain. He confirms not having a bowel movement for the past 3 days. Encouraged using stool softeners moving forward. Patient voiced understanding. Drawer In Dobby Loom used ID #[id number]. <Kj LainezGwen - 02/19/18 14:12> Results - Labs Result diagrams: 02/19/18 03:21 02/19/18 03:21 <Eddie Sandoval - 02/19/18 16:27> Abnormal lab results 02/19/18 02/19/18 Range/Units 03:21 03:21 WBC 12.0 H (4.0-11.0) th/mm3 RBC 2.87 L (4.50-5.90) mil/mm3 Hgb 8.0 L (13.0-17.0) gm/dL Hct 25.2 L (39.0-51.0) % MCHC 31.8 L (32.0-36.0) % Plt Count 555 H (150-450) th/mm3 Neut % (Auto) 76.2 H (16.0-70.0) % Neut # (Auto) 9.2 H (1.8-7.7) th/mm3 Calcium 11.6 H* (8.5-10.1) mg/dL Calcium Adj for Albumin 12.7 H* (8.5-10.1) mg/dL AST 12 L (15-37) U/L ALT 11 L (12-78) U/L Albumin 2.6 L (3.4-5.0) g/dL Short CBC 02/19/18 Range/Units 03:21 WBC 12.0 H (4.0-11.0) th/mm3 Hgb 8.0 L (13.0-17.0) gm/dL Hct 25.2 L (39.0-51.0) % Plt Count 555 H (150-450) th/mm3 BMP 02/19/18 03:21 Sodium 138 Potassium 3.8 Chloride 105 Carbon Dioxide 27.6 BUN 10 Creatinine 0.79 Calcium 11.6 H* Liver Function 02/19/18 Range/Units 03:21 Total Bilirubin 0.2 (0.2-1.0) mg/dL AST 12 L (15-37) U/L ALT 11 L (12-78) U/L Alkaline Phosphatase 109 (45-117) U/L Albumin 2.6 L (3.4-5.0) g/dL <Young,Eddie L - 02/19/18 16:27> Abnormal lab results 02/19/18 02/19/18 Range/Units 03:21 03:21 WBC 12.0 H (4.0-11.0) th/mm3 RBC 2.87 L (4.50-5.90) mil/mm3 Hgb 8.0 L (13.0-17.0) gm/dL Hct 25.2 L (39.0-51.0) % MCHC 31.8 L (32.0-36.0) % Plt Count 555 H (150-450) th/mm3 Neut % (Auto) 76.2 H (16.0-70.0) % Neut # (Auto) 9.2 H (1.8-7.7) th/mm3 Calcium 11.6 H* (8.5-10.1) mg/dL Calcium Adj for Albumin 12.7 H* (8.5-10.1) mg/dL AST 12 L (15-37) U/L ALT 11 L (12-78) U/L Albumin 2.6 L (3.4-5.0) g/dL Short CBC 02/19/18 Range/Units 03:21 WBC 12.0 H (4.0-11.0) th/mm3 Hgb 8.0 L (13.0-17.0) gm/dL Hct 25.2 L (39.0-51.0) % Plt Count 555 H (150-450) th/mm3 BMP 02/19/18 03:21 Sodium 138 Potassium 3.8 Chloride 105 Carbon Dioxide 27.6 BUN 10 Creatinine 0.79 Calcium 11.6 H* Liver Function 02/19/18 Range/Units 03:21 Total Bilirubin 0.2 (0.2-1.0) mg/dL AST 12 L (15-37) U/L ALT 11 L (12-78) U/L Alkaline Phosphatase 109 (45-117) U/L Albumin 2.6 L (3.4-5.0) g/dL <Gwen Hill - 02/19/18 11:24> - Imaging Impressions Bone Scan Nuclear Medicine 02/18/18 00:00 CONCLUSION: 1. No definite evidence for metastatic disease. <Gwen Hill - 02/19/18 11:24> Physical Exam Vital signs: Vital Signs 02/18/18 16:30 02/18/18 17:02 02/18/18 19:39 Temperature Pulse Rate Respiratory Rate 20 16 Blood Pressure Pulse Oximetry 98 02/18/18 20:00 02/18/18 23:15 02/19/18 00:00 Temperature 98.4 F 98.4 F Pulse Rate 72 66 59 L Respiratory Rate 16 18 Blood Pressure 136/77 104/60 Pulse Oximetry 97 97 02/19/18 03:55 02/19/18 05:24 02/19/18 08:00 Temperature 97.6 F 97.7 F Pulse Rate 57 L 62 68 Respiratory Rate 18 18 Blood Pressure 106/60 129/67 Pulse Oximetry 98 100 02/19/18 11:37 02/19/18 12:00 Temperature 98.8 F Pulse Rate 72 Respiratory Rate 18 Blood Pressure 129/60 Pulse Oximetry 98 99 Intake & Output 02/18/18 02/19/18 02/19/18 18:59 06:59 18:59 Intake Total 1840 / 1840 280 / 280 Balance 1840 / 1840 280 / 280 Weight 56 kg Intake: IV 1000 / 1000 NS Inj 1,000 ML @ 105 mls/hr IV 1000 / 1000 .CONT .Q9H32M [facility] Rx#:[id number] Oral 840 / 840 280 / 280 Other: # Voids 5 3 # Bowel Movements 0 0 <Eddie Sandoval - 02/19/18 16:27> Vital Signs 02/18/18 12:00 02/18/18 16:00 02/18/18 16:30 Temperature 97.8 F 98.2 F Pulse Rate 69 74 Respiratory Rate 20 20 20 Blood Pressure 117/57 L 129/57 L Pulse Oximetry 100 99 02/18/18 17:02 02/18/18 19:39 02/18/18 20:00 Temperature 98.4 F Pulse Rate 72 Respiratory Rate 16 16 Blood Pressure 136/77 Pulse Oximetry 98 97 02/18/18 23:15 02/19/18 00:00 02/19/18 03:55 Temperature 98.4 F 97.6 F Pulse Rate 66 59 L 57 L Respiratory Rate 18 18 Blood Pressure 104/60 106/60 Pulse Oximetry 97 98 02/19/18 05:24 02/19/18 08:00 Temperature 97.7 F Pulse Rate 62 72 Respiratory Rate 18 Blood Pressure 129/67 Pulse Oximetry 100 Intake & Output 02/18/18 02/19/18 02/19/18 18:59 06:59 18:59 Intake Total 1840 / 1840 280 / 280 Balance 1840 / 1840 280 / 280 Weight 56 kg Intake: IV 1000 / 1000 NS Inj 1,000 ML @ 105 mls/hr IV 1000 / 1000 .CONT .Q9H32M [facility] Rx#:[id number] Oral 840 / 840 280 / 280 Other: # Voids 5 3 # Bowel Movements 0 0 <Gwen Hill - 02/19/18 11:24> Narrative: GENERAL: Laying in bed, no acute distress. Swiss speaking with a moderate amount of Argentine, supervisor doping used. SKIN: Warm and dry. Right lower leg amputation with clean, dry, intact wrapping. On inspection stump in nonerythematous, nontender, no purulent drainage. HEAD: Atraumatic. Normocephalic. EYES: Pupils equal and round. No scleral icterus. No injection or drainage. ENT: No nasal bleeding or discharge. Mucous membranes pink and moist. NECK: Trachea midline. No JVD. CARDIOVASCULAR: Regular rate and rhythm. RESPIRATORY: No accessory muscle use. Clear to auscultation. Breath sounds equal bilaterally. GASTROINTESTINAL: Abdomen soft, non-tender, nondistended. Hepatic and splenic margins not palpable. MUSCULOSKELETAL: Extremities without clubbing, cyanosis, or edema. No obvious deformities. NEUROLOGICAL: Awake and alert. No obvious cranial nerve deficits. Motor grossly within normal limits. PSYCHIATRIC: Appropriate mood and affect; insight and judgment normal. <Gwen Hill - 02/19/18 14:12> Assessment and Plan - Assessment (1) Chest pain Code(s): R07.9 - Chest pain, unspecified Status: Acute (2) Pulmonary emboli Code(s): I26.99 - Other pulmonary embolism without acute cor pulmonale Status : Acute (3) Lung mass Code(s): R91.8 - Other nonspecific abnormal finding of lung field Status: Acute (4) Hypercalcemia Code(s): E83.52 - Hypercalcemia Status: Acute <Eddie Sandoval - 02/19/18 16:27> (1) Chest pain Code(s): R07.9 - Chest pain, unspecified Status: Acute Plan: Patient presented for chest pain radiating to back. CTA negative for dissection , however direct invasion of adjacent vertebrae and ribs from lung mass. Initial troponin negative. EKG negative. Chest pain likely secondary to oncologic disease. [place] workup negative. -Opioid pain scale (2) Pulmonary emboli Code(s): I26.99 - Other pulmonary embolism without acute cor pulmonale Status : Acute Plan: Small left-sided pulmonary embolus. Hold Lovenox today for IR procedure tomorrow. (3) Lung mass Code(s): R91.8 - Other nonspecific abnormal finding of lung field Status: Acute Plan: Left upper lobe 6.9 cm mass. Patient reports he had had a biopsy done at [facility] in October. Unsure of type of cancer. Has not been followed outpatient. Likely cause of chest pain. Initial radiographic findings of metastases. -Medical records received from [facility]. Scanned into chart. -Oncology consulted * bone scan WNL * Follow-up PTH RP * Unable to obtain MRI due to shrapnel and face to evaluate for cord compression , clinically no evidence of cord compression * Hypercalcemia: 12.7 corrected. Zometa started. (4) Hypercalcemia Code(s): E83.52 - Hypercalcemia Status: Acute Plan: Adjusted calcium 12.7 on admission. Likely secondary to oncologic disease. -IV hydration -Follow-up PTH RP -Zometa started. <Gwen Hill - 02/19/18 14:13> - Attending Attestation Patient seen with resident team this morning. I agree with documentation above. Patient with likely stage 4 lung cancer. Obtained records from [facility] , to be scanned into his chart. Shows a poorly differentiated non-small cell lung cancer. Initial imaging showed invasion of ribs and vertebrae, likely causing his pain. Oncology and radiation oncology on board, plan for port placement tomorrow to initiate treatments. Small pulmonary embolism being treated with Lovenox, on hold for port placement tomorrow. Hemodynamically he is stable. Pain is reasonably well controlled on current regimen, can increase as needed to manage pain. <Eddie Sandoval - 02/19/18 16:27>
[2018-02-19] MEDS ORDERED: Vancomycin Inj 1,000 MG in Sodium Chlor 0.9% Inj 250 ML IV.SIG SCH (12:24)
[2018-02-19] MEDS ORDERED: ceFAZolin 2 GM Premix Inj 2 GM/50 ML PIGGYBACK IV.SIG SCH (12:25)
[2018-02-19] MEDS: Morphine Inj 4 MG/ML Vial IV.PUSH PRN ×2 (13:20→23:30)
--- NOTE | 2018-02-19 13:24 | P.CON ---
History of Present Illness Service: Radiation oncology Consult date: 02/19/18 Requesting Physician: Mario Martinez Primary Care Provider: UNKNOWN History of Present Illness: 57-year-old male from [place], that according to the patient and the and the record he was initially evaluated in October of last year at [facility] with the complaints of increased left chest wall pain and back pain. On workup he was noted to have right leg pain and noted to have right lower extremity peripheral arterial disease. During the hospital stay, he was found to have left lung mass. The patient had a biopsy and was noted to have lung carcinoma. The patient stated that at that point the mass was about 2.3 cm in size. He did not have any insurance. He went back to [place] to have procedure done for the peripheral arterial disease. He stated that he was supposed to come back after his procedure to follow up with his oncologist, but His right lower extremity surgery was complicated and he ended up with an above-knee amputation. He recently came back to the [facility]. He says that his left chest wall pain has been increasing for the last 3 months and over the last week it got progressively worse to the point that he could not stand it anymore and as a result of this he came to the ER for evaluation. He denies any hemoptysis. He denies any neurological changes. He has mild shortness of breath with activity. He denies significant cough. He has lost about 10 pounds in the last 3 months. Patient has been evaluated by Dr. Martinez. I have discussed this case personally with Dr. Martinez today. A consult has been placed for evaluation of the patient regards to her therapy treatment options. Review of Systems Constitutional: Reports body ache(s), Reports lack of energy, Reports weight loss Eyes: Denies blind spots, Denies blurry vision, Denies bulging eyes, Denies change in vision, Denies double vision, Denies discharge, Denies dry eyes, Denies floaters, Denies irritation, Denies itchy eyes, Denies loss of vision, Denies pain, Denies requires corrective lenses, Denies sensitivity to light, Denies other Ears, Nose, Mouth, and Throat: Denies abnormal hearing, Denies bleeding gums, Denies bad breath, Denies change in voice, Denies dental pain, Denies difficulty swallowing, Denies dizziness, Denies dry mouth, Denies ear discharge , Denies ear pain, Denies facial pain, Denies headache(s), Denies hearing loss, Denies hoarseness, Denies lip swelling, Denies nosebleed, Denies mouth lesions, Denies mouth pain, Denies nasal congestion, Denies nasal discharge, Denies nasal obstruction, Denies nasal trauma, Denies neck lump, Denies neck pain, Denies nose pain, Denies pain with swallowing, Denies poor balance, Denies post nasal drip, Denies ringing in the ears, Denies sinus pain, Denies sinus pressure , Denies sore throat, Denies throat swelling, Denies tongue swelling, Denies other Cardiovascular: Denies chest pain, Denies chest pain at rest, Denies chest pain with activity, Denies excessive sweating, Denies fainting, Denies fast heart rate, Denies foot swelling, Denies generalized swelling, Denies irregular heart rhythm, Denies leg pain with activity, Denies leg sores, Denies leg swelling, Denies lightheadedness, Denies radiating jaw, neck or arm pain, Denies rapid, pounding, or irregular heartbeat, Denies shortness of breath, Denies shortness of breath with activity, Denies shortness of breath when lying down, Denies shortness of breath causing sudden awakening, Denies slow heart rate, Denies other Respiratory: Reports pain on inspiration, Reports shortness of breath Comments: Lungs to auscultation had decreased ventilatory inspiratory effort more so on the left upper lobe. Lungs were clear to auscultation bilaterally. Gastrointestinal: Denies abdominal pain, Denies belching, Denies black, tarry stools, Denies bloating, Denies bright, red blood in stools, Denies change in bowel habits, Denies constant urge to pass stool, Denies change in stools, Denies coffee ground vomit, Denies constipation, Denies cramping, Denies difficulty swallowing, Denies excessive passing of gas, Denies feeling full early, Denies heartburn, Denies incontinent of stools, Denies loose stools, Denies nausea, Denies pain with swallowing, Denies vomiting, Denies vomiting blood, Denies other Genitourinary: Denies blood in semen, Denies blood in urine, Denies decreased urination, Denies difficulty urinating, Denies difficulty with ejaculations, Denies erectile dysfunction, Denies genital lesions, Denies genital pain, Denies painful urination, Denies side pain, Denies frequent nighttime urination , Denies painful ejaculations, Denies penile discharge, Denies scrotal swelling , Denies testicle lump, Denies testicle pain, Denies urinary frequency, Denies urinary hesitancy, Denies urinary incontinence, Denies urinary urgency, Denies other Musculoskeletal: Reports body aches Skin/Breast: Denies acne, Denies bleeding lesions, Denies boil, Denies breast swelling, Denies breast skin changes, Denies breast pain, Denies breast lump, Denies change in breast shape, Denies change in hair, Denies change in skin color, Denies changing lesions, Denies dry skin, Denies excessive hair growth, Denies hair loss, Denies itching, Denies lesions, Denies nail changes, Denies new lesions, Denies nipple discharge, Denies non-healing lesions, Denies redness , Denies sensitivity to light, Denies rash, Denies skin pain, Denies skin ulcer , Denies sores, Denies stretch loera, Denies unusual bruising, Denies wounds, Denies yellowing of the skin, Denies other Neurologic: Denies abnormal hearing, Denies abnormal movements, Denies abnormal speech, Denies abnormal walking, Denies behavioral changes, Denies burning sensations, Denies confusion, Denies dizziness, Denies fainting, Denies frequent falls, Denies headache(s), Denies lack of coordination, Denies localized weakness, Denies loss of vision, Denies memory loss, Denies numbness, Denies other visual disturbances, Denies radiating pain, Denies restless legs, Denies convulsions, Denies seizure-like activity, Denies sensory deficit, Denies tingling, Denies tingling/numbness/burning sensations, Denies tremor(s), Denies unsteadiness, Denies weakness, Denies other Psychiatric: Denies abnormal sleep pattern, Denies anxiety, Denies behavioral changes, Denies change in appetite, Denies change in sex drive, Denies confusion , Denies depression, Denies difficulty concentrating, Denies hearing things others do not hear, Denies hopelessness, Denies irritability, Denies lack of enjoyment, Denies memory loss, Denies mood swings, Denies panic attacks, Denies paranoia, Denies seeing things others do not see, Denies sensing things others do not sense, Denies tactile hallucinations, Denies thoughts of hurting/killing others, Denies thoughts of hurting/killing yourself, Denies other Endocrine: Denies cold intolerance, Denies excessive sweating, Denies flushing, Denies heat intolerance, Denies increased hunger, Denies increased thirst, Denies increased urination, Denies rapid, pounding, or irregular heartbeat, Denies other Hematologic/Lymphatic: Denies easy bleeding, Denies easy bruising, Denies enlarged lymph nodes, Denies other Allergic/Immunologic: Denies GI upset with certain foods, Denies hives, Denies itchy eyes, Denies lip swelling, Denies seasonal runny nose, Denies throat swelling, Denies tongue swelling, Denies wheezing, Denies other PMFSH - History History Provided By: Patient - Medical History Medical History: Medical History (Last Reviewed 02/19/18 @ 08:48 by [facility]) Dvt femoral (deep venous thrombosis) Lung cancer - Surgical History Surgical History: Surgical History (Last Reviewed 02/19/18 @ 08:48 by [employer] [employer]) Above knee amputation of right lower extremity - Tobacco History Second Hand Smoke Exposure: No Smoking Status: Former smoker - Alcohol History How Often Do You Have a Drink Containing Alcohol: Never - Substance Use History Substance History: No History of Abuse - Travel History Recent Travel in the [place] Within the Last 8 Weeks: No Recent Travel Out of the Country Within the Last 8 Weeks: Yes - Immunization History Tetanus Immunization: Unsure Hx Influenza Vaccine This Season: No Medications and Allergies Active Medications: Active Medications Acetaminophen (Tylenol) 650 mg PO Q4H PRN PRN Reason: Temp > 100.4 Hydrocodone Bitart/Acetaminophen ([place] 7.5/325) 1 tab PO Q4H PRN PRN Reason: PAIN SCALE 6 TO 10 Last Admin: 02/19/18 12:29 Dose: 1 tab Hydrocodone Bitart/Acetaminophen ([place] 5/325) 1 tab PO Q4H PRN PRN Reason: PAIN SCALE 3 TO 5 Last Admin: 02/18/18 15:13 Dose: 1 tab Al Hydroxide/Mg Hydroxide (Milk Of Magnesia Liq) 30 ml PO Q12H PRN PRN Reason: Mild Constipation Last Admin: 02/19/18 10:20 Dose: 30 ml Atorvastatin Calcium (Lipitor) 40 mg PO DAILY [facility] Last Admin: 02/19/18 08:31 Dose: 40 mg Bisacodyl (Dulcolax Supp) 10 mg RECTAL DAILY PRN PRN Reason: SEVERE CONSITIPATION Enoxaparin Sodium (Lovenox Inj) 70 mg SQ Q12HR [facility] Last Admin: 02/19/18 08:30 Dose: 70 mg Sodium Chloride (Ns Inj) 1,000 mls @ 105 mls/hr IV.CONT .Q9H32M [facility] Last Admin: 02/19/18 09:15 Dose: 105 mls/hr Cefazolin Sodium/Dextrose (Ancef 2 Gm Premix Inj) 2 gm in 50 mls @ 200 mls/hr IV.SIG [employer] [facility] Stop: 02/22/18 12:24 Vancomycin HCl 1,000 mg/ (Sodium Chloride) 250 mls @ 200 mls/hr IV.SIG [employer] [facility] Stop: 02/22/18 12:23 Ibuprofen (Motrin) 400 mg PO Q6HR PRN PRN Reason: PAIN SCALE 1 TO 2 Last Admin: 02/18/18 18:31 Dose: 400 mg Lactulose (Lactulose Liq) 30 ml PO DAILY PRN PRN Reason: SEVERE CONSITIPATION Morphine Sulfate (Morphine Inj) 1 mg IV.PUSH Q3H PRN PRN Reason: BREAKTHROUGH PAIN Last Admin: 02/18/18 00:10 Dose: 1 mg Naloxone HCl (Narcan Inj) 0.4 mg IV.PUSH UNSCH PRN PRN Reason: SEE LABEL COMMENTS Ondansetron HCl (Zofran Inj) 4 mg IV.PUSH Q6H PRN PRN Reason: NAUSEA OR VOMITING Senna/Docusate Sodium (Shila-Colace) 1 tab PO BID [facility] Last Admin: 02/19/18 08:30 Dose: 1 tab Sennosides (Senokot) 17.2 mg PO Q12H PRN PRN Reason: Moderate Constipation Sodium Chloride (Ns Flush) 2 ml IV.FLUSH BID [facility] Last Admin: 02/19/18 08:30 Dose: 2 ml Sodium Chloride (Ns Flush) 2 ml IV.FLUSH PRN PRN PRN Reason: FLUSH AFTER USING IV ACCESS Allergies Allergy/AdvReac Type Severity Reaction Status Date / Time No Known Allergies Allergy Verified 02/17/18 04:50 Home Medications Medication Instructions Recorded Confirmed Type rivaroxaban [Xarelto] 15 mg PO BID 02/17/18 02/17/18 History rosuvastatin 20 mg PO DAILY 02/17/18 02/17/18 History Physical Exam Vital signs: Vital Signs 02/18/18 16:00 02/18/18 16:30 02/18/18 17:02 Temperature 98.2 F Pulse Rate 74 Respiratory Rate 20 20 Blood Pressure 129/57 L Pulse Oximetry 99 98 02/18/18 19:39 02/18/18 20:00 02/18/18 23:15 Temperature 98.4 F 98.4 F Pulse Rate 72 66 Respiratory Rate 16 16 18 Blood Pressure 136/77 104/60 Pulse Oximetry 97 97 02/19/18 00:00 02/19/18 03:55 02/19/18 05:24 Temperature 97.6 F Pulse Rate 59 L 57 L 62 Respiratory Rate 18 Blood Pressure 106/60 Pulse Oximetry 98 02/19/18 08:00 02/19/18 11:37 Temperature 97.7 F Pulse Rate 72 Respiratory Rate 18 Blood Pressure 129/67 Pulse Oximetry 100 98 Intake & Output 02/18/18 02/19/18 02/19/18 18:59 06:59 18:59 Intake Total 1840 / 1840 280 / 280 Balance 1840 / 1840 280 / 280 Weight 56 kg Intake: IV 1000 / 1000 NS Inj 1,000 ML @ 105 mls/hr IV 1000 / 1000 .CONT .Q9H32M [facility] Rx#:[id number] Oral 840 / 840 280 / 280 Other: # Voids 5 3 # Bowel Movements 0 0 - Constitutional no acute distress, thin, cooperative - Routine HEENT Exam Head: Present: normocephalic Eye: Present: EOMI ENT: Present: mucous membranes moist - Routine Neck Exam Present: supple Comments: No lymph nodes palpated. - Routine Respiratory Exam Present: decreased breath sounds Comments: Lungs to auscultation had decreased ventilatory inspiratory effort more so on the left upper lobe. Lungs were clear to auscultation bilaterally - Routine Cardiovascular Exam Comments: Heart is regular rate and rhythm with no murmurs. - Routine Abdominal Exam Present: soft - Routine Extremities Exam Present: amputation - Routine Skin Exam Present: intact - Routine Neurological Exam Present: alert, oriented X3, vision grossly intact, hearing grossly intact - Routine Psychiatric Exam Present: normal affect, normal thought process, cooperative, good insight, good judgment Results - Labs CBC & Chem 7: 02/19/18 03:21 02/19/18 03:21 Labs: Laboratory Results - last 24 hr 02/19/18 02/19/18 03:21 03:21 WBC 12.0 H RBC 2.87 L Hgb 8.0 L Hct 25.2 L MCV 88.0 MCH 28.0 MCHC 31.8 L RDW 15.0 Plt Count 555 H MPV 8.4 Neut % (Auto) 76.2 H Lymph % (Auto) 15.0 [place] % (Auto) 7.1 Eos % (Auto) 1.5 Baso % (Auto) 0.2 Neut # (Auto) 9.2 H Lymph # (Auto) 1.8 [place] # (Auto) 0.9 Eos # (Auto) 0.2 Baso # (Auto) 0.0 WBC Differential . Differential Comment Auto diff final Sodium 138 Potassium 3.8 Chloride 105 Carbon Dioxide 27.6 Anion Gap 5 BUN 10 Creatinine 0.79 Estimated GFR Greater than 89 Random Glucose 87 Calcium 11.6 H* Calcium Adj for Albumin 12.7 H* Total Bilirubin 0.2 AST 12 L ALT 11 L Alkaline Phosphatase 109 Total Protein 7.4 Albumin 2.6 L - Imaging Impressions Bone Scan Nuclear Medicine 02/18/18 00:00 CONCLUSION: 1. No definite evidence for metastatic disease. CT of the chest 02/17/2018: CONCLUSION: 1. Malignant left upper lobe mass with direct invasion of the adjacent vertebrae and ribs and posterior elements characteristic of local spread of metastatic disease with direct invasion of the mediastinum. 2. Metastatic adenopathy within the left hilum and mediastinum. 3. There are lung nodules on the left side highly suspicious for metastatic disease as well. 4. Small pulmonary embolus left lower lobe pulmonary artery. CT of the abdomen and pelvis 02/17/2018: CONCLUSION: No metastatic disease or other acute abnormality within the abdomen or pelvis. 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 Patient been evaluated for possible radiotherapy treatment options. Plan: I had an extensive discussion with the patient regards to his current condition. was present. Conversation was in Y[place]. I advised him of the merits of the radiotherapy. I advised him of his current condition. I have reviewed Dr. Martinez's note from 02/17/2018 where he recommends radiation oncology evaluation. I have discussed this case today personally with him. I have personally reviewed the CT of the chest. Patient advised that per discussion with Dr. Martinez and the fact that the possible contralateral pulmonary nodules are minimal and nonspecific that we would recommend that he gets treated with concomitant chemo radiotherapy in aggressive fashion. Patient will also need a PET scan once discharged. I advised the patient of the merits of radiotherapy as well as side effects and complications. Side effects to the lung to include but limited to: Weakness and fatigue, decreased blood counts, erythema the skin, necrosis of skin, pain of the treated area, bone damage and fracture, costochondritis, lung damage, lung fibrosis, lung pneumonitis, the possibility becoming oxygen dependent, the possibility of becoming pulmonary cripple, heart damage, spinal cord damage, difficulty and pain with swallowing, esophageal strictures which may require dilation, brachial plexus damage. The patient and the understood everything that was explained. They want to move forward with treatments. Patient is to return to the department today for simulation and treatment planning. We will coordinate to start treatments with chemotherapy.. Dr. Martinez,,thank you very much for the referral of this patient and allowing me to participate in her care. Should you have any further questions or concerns please do not hesitate to contact me
--- NOTE | 2018-02-19 13:45 | P.PNONC ---
Subjective Interval history: Patient sitting up in bed, his is at the bedside. He reports that his pain has not been controlled at night. We have discussed his pain medications and I have explained to him that he may request his breakthrough morphine IV when he is having pain at night. After reviewing his mar, it does not appear that he has been getting his medications at night. Objective Vital Signs/Intake & Output: Vital Signs 02/18/18 16:00 02/18/18 16:30 02/18/18 17:02 Temperature 98.2 F Pulse Rate 74 Respiratory Rate 20 20 Blood Pressure 129/57 L Pulse Oximetry 99 98 02/18/18 19:39 02/18/18 20:00 02/18/18 23:15 Temperature 98.4 F 98.4 F Pulse Rate 72 66 Respiratory Rate 16 16 18 Blood Pressure 136/77 104/60 Pulse Oximetry 97 97 02/19/18 00:00 02/19/18 03:55 02/19/18 05:24 Temperature 97.6 F Pulse Rate 59 L 57 L 62 Respiratory Rate 18 Blood Pressure 106/60 Pulse Oximetry 98 02/19/18 08:00 02/19/18 11:37 02/19/18 12:00 Temperature 97.7 F 98.8 F Pulse Rate 72 66 Respiratory Rate 18 18 Blood Pressure 129/67 129/60 Pulse Oximetry 100 98 99 Intake & Output 02/18/18 02/19/18 02/19/18 18:59 06:59 18:59 Intake Total 1840 / 1840 280 / 280 Balance 1840 / 1840 280 / 280 Weight 56 kg Intake: IV 1000 / 1000 NS Inj 1,000 ML @ 105 mls/hr IV 1000 / 1000 .CONT .Q9H32M [facility] Rx#:[id number] Oral 840 / 840 280 / 280 Other: # Voids 5 3 # Bowel Movements 0 0 Result Diagrams: 02/19/18 03:21 02/19/18 03:21 Laboratory Results: Laboratory Results - last 24 hr 02/19/18 02/19/18 03:21 03:21 WBC 12.0 H RBC 2.87 L Hgb 8.0 L Hct 25.2 L MCV 88.0 MCH 28.0 MCHC 31.8 L RDW 15.0 Plt Count 555 H MPV 8.4 Neut % (Auto) 76.2 H Lymph % (Auto) 15.0 [place] % (Auto) 7.1 Eos % (Auto) 1.5 Baso % (Auto) 0.2 Neut # (Auto) 9.2 H Lymph # (Auto) 1.8 [place] # (Auto) 0.9 Eos # (Auto) 0.2 Baso # (Auto) 0.0 WBC Differential . Differential Comment Auto diff final Sodium 138 Potassium 3.8 Chloride 105 Carbon Dioxide 27.6 Anion Gap 5 BUN 10 Creatinine 0.79 Estimated GFR Greater than 89 Random Glucose 87 Calcium 11.6 H* Calcium Adj for Albumin 12.7 H* Total Bilirubin 0.2 AST 12 L ALT 11 L Alkaline Phosphatase 109 Total Protein 7.4 Albumin 2.6 L Medications: Active Medications Generic Name Dose Route Start Last Admin Trade Name Freq PRN Reason Stop Dose Admin Hydrocodone Bitart/Acetaminophen 1 tab 02/17/18 12:18 02/19/18 12:29 [place] 7.5/325 PO 1 tab Q4H PRN Administration PAIN SCALE 6 TO 10 Hydrocodone Bitart/Acetaminophen 1 tab 02/17/18 12:18 02/18/18 15:13 [place] 5/325 PO 1 tab Q4H PRN Administration PAIN SCALE 3 TO 5 Al Hydroxide/Mg Hydroxide 30 ml 02/17/18 10:23 02/19/18 10:20 Milk Of Magnesia Liq PO 30 ml Q12H PRN Administration Mild Constipation Atorvastatin Calcium 40 mg 02/18/18 09:00 02/19/18 08:31 Lipitor PO 40 mg DAILY NOEL Administration Enoxaparin Sodium 70 mg 02/17/18 21:00 02/19/18 08:30 Lovenox Inj SQ 70 mg Q12HR NOEL Administration Sodium Chloride 1,000 mls @ 105 mls/hr 02/17/18 10:30 02/19/18 09:15 Ns Inj IV.CONT 105 mls/hr .Q9H32M NOEL Administration Ibuprofen 400 mg 02/17/18 12:18 02/18/18 18:31 Motrin PO 400 mg Q6HR PRN Administration PAIN SCALE 1 TO 2 Morphine Sulfate 1 mg 02/17/18 12:18 02/19/18 13:20 Morphine Inj IV.PUSH 1 mg Q3H PRN Administration BREAKTHROUGH PAIN Senna/Docusate Sodium 1 tab 02/17/18 21:00 02/19/18 08:30 Shila-Colace PO 1 tab BID NOEL Administration Sodium Chloride 2 ml 02/17/18 21:00 02/19/18 08:30 Ns Flush IV.FLUSH 2 ml BID NOEL Administration Objective Remarks: GENERAL: Well-nourished, well-developed male patient, no acute distress. SKIN: Warm and dry. HEAD: Normocephalic. EYES: No scleral icterus. No injection or drainage. NECK: Supple, trachea midline. CARDIOVASCULAR: Regular rate and rhythm without murmurs. RESPIRATORY: Breath sounds equal bilaterally. Nonlabored at rest. GASTROINTESTINAL: Abdomen soft, non-tender, nondistended. EXTREMITIES: No cyanosis, or edema. Right leg above-knee amputation, stump wrapped with Aldo wrap. MUSCULOSKELETAL: Adequate muscle tone. NEUROLOGICAL: No obvious focal deficit. Awake, alert, and oriented x3. PSYCHIATRIC: Appropriate mood and affect; insight and judgment normal. Assessment/Plan - Plan Mr. Payne is a pleasant 57-year-old male patient with left lung mass consistent with lung cancer. He was diagnosed at [facility] in [place], per the patient in October. He went to [place] for a right leg vascular procedure and ended up with complications and a right [id number] amputation. He states this was approximately 4-6 weeks ago. He presented to the hospital with back and chest pain, CT findings consistent with stage IV metastatic disease. Plan: 1. Left lung mass consistent with lung cancer. Dr. Virk reviewed patient's pathology report and it appears to be a squamous cell cancer. Consult placed for radiation oncology. We have also ordered a port placement. Patient's information has been sent to new patient referrals for outpatient follow-up and they have approval and have spoken with the patient's . 2. Back pain and left chest wall pain, secondary to lung mass invading the posterior ribs and vertebral body. Clinically no evidence of cord compression, the patient is unable to get an MRI due to shrapnel in his face. Pain control during the day with pain medications, however patient states his pain has increased at night. After reviewing his mar, it appears that he does not get the IV morphine in the evenings or at night. I have discussed with him that he may ask for pain medications. 3. Hypercalcemia, bone scan showed no definitive evidence of metastatic disease. Calcium today increased to 11.6, 12.7 with adjustment for albumin. Renal function is normal, ordered 500 mL bolus normal saline prior to the administration of Zometa. 4. Small pulmonary embolism found on thoracic aorta CT, patient on Lovenox 70 mg twice daily. 5. Consult placed to radiation oncology. 6. Port placement ordered. - Attending Statement The exam, history, and the medical decision-making described in the above note were completed with the assistance of the mid-level provider. I reviewed and agree with the findings presented. I attest that I had a [id number] encounter with the patient on the same day, and personally performed and documented my assessment and findings in the medical record. Patient still has left chest and back pain. His pain is controlled. Reviewed records from [facility] and patient had biopsy in October which showed squamous cell carcinoma versus urothelial carcinoma. 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 CT of the abdomen pelvis and bone scan did not show definite metastatic disease. CT of the chest showed bilateral tiny pulmonary nodules but those nodules were mentioned on his previous CT scan in October. His disease appeared to be localized in the left lung. I recommend treating him aggressively with concurrent chemotherapy and radiation. I have discussed the case with Dr. Sharpe and he is going to arrange for radiation simulation. We will also consult radiology to place a port for chemotherapy administration. Explained to patient and his and their questions were answered. I have also discussed with Dr. Dubois..
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
[2018-02-20 07:46] LABS: Baso % (Auto) 0.2 % (0.0-2.0); Eos # (Auto) 0.1 th/mm3 (0.0-0.4); Eos % (Auto) 0.6 % (0.0-4.0); Hematocrit 23.1 % (39.0-51.0); Hemoglobin 7.6 gm/dL (13.0-17.0); Lymph % (Auto) 7.3 % (9.0-44.0); Mean Corpuscular HGB Conc 33.1 % (32.0-36.0); Mean Corpuscular Hemoglobin 28.7 pg (27.0-34.0); Mean Corpuscular Volume 86.8 fL (80.0-100.0); Mean Platelet Volume 8.6 fL (7.0-11.0); Mono # (Auto) 0.7 th/mm3 (0.0-0.9); Neut # (Auto) 11.4 th/mm3 (1.8-7.7); Neut % (Auto) 86.9 % (16.0-70.0); Platelet Count 493 th/mm3 (150-450); Red Blood Count 2.66 mil/mm3 (4.50-5.90); Red Cell Distribution Width 15.1 % (11.6-17.2); White Blood Count 13.1 th/mm3 (4.0-11.0)
[2018-02-20 08:35] LABS: Alanine Aminotransferase 12 U/L (12-78); Albumin 2.5 g/dL (3.4-5.0); Alkaline Phosphatase 101 U/L (45-117); Anion Gap 10 meq/L (5-15); Aspartate Aminotransferase 9 U/L (15-37); Blood Urea Nitrogen 9 mg/dL (7-18); Calcium 10.1 mg/dL (8.5-10.1); Carbon Dioxide 25.3 meq/L (21.0-32.0); Chloride 104 meq/L (98-107); Glomerular Filtration Rate Greater Than 89 mL/min (>89); Glucose,Random 75 mg/dL (74-106); Potassium 3.8 meq/L (3.5-5.1); Sodium 139 meq/L (136-145); Total Protein 7.3 g/dL (6.4-8.2)
[2018-02-20] MEDS: Senna/Docusate Sodium 8.6/50 MG Tablet PO SCH (09:05)
[2018-02-20] MEDS: Sod Chloride 0.9% Inj 1,000 ML IV.CONT SCH ×2 (09:05→14:55)
[2018-02-20] MEDS ORDERED: fentaNYL Citrate Inj 250 MCG/5 ML Ampul ONE (11:38)
--- NOTE | 2018-02-20 11:56 | P.PNFP ---
Subjective Interval history: Patient seen and examined today. Video special education classroom aide used. Reviewed discussions previously had with oncology and radiation oncologist. Patient knowledgeable that he needs to follow-up with Dr. Virk and Dr. Sharpe after discharge for further management. Patient understands that he has a port placement today, may be able to go home today or tomorrow. Patient states he continues to have mild pain in his left chest and back, improved from admission. Denies lightheadedness, dizziness, headache, changes in vision, left arm or jaw pain, syncope, shortness of breath, weakness, changes in bowel or bladder habits. No other acute complaints today. Shoe Sticks Repairer used [employer] #[id number] <Eddie Ni - 02/20/18 14:48> Results - Labs Result diagrams: 02/20/18 06:13 02/20/18 06:43 <Eddie Sandoval - 02/20/18 15:48> Abnormal lab results 02/20/18 02/20/18 Range/Units 06:13 06:43 WBC 13.1 H (4.0-11.0) th/mm3 RBC 2.66 L (4.50-5.90) mil/mm3 Hgb 7.6 L (13.0-17.0) gm/dL Hct 23.1 L (39.0-51.0) % Plt Count 493 H (150-450) th/mm3 Neut % (Auto) 86.9 H (16.0-70.0) % Lymph % (Auto) 7.3 L (9.0-44.0) % Neut # (Auto) 11.4 H (1.8-7.7) th/mm3 AST 9 L (15-37) U/L Albumin 2.5 L (3.4-5.0) g/dL Short CBC 02/20/18 Range/Units 06:13 WBC 13.1 H (4.0-11.0) th/mm3 Hgb 7.6 L (13.0-17.0) gm/dL Hct 23.1 L (39.0-51.0) % Plt Count 493 H (150-450) th/mm3 BMP 02/20/18 06:43 Sodium 139 Potassium 3.8 Chloride 104 Carbon Dioxide 25.3 BUN 9 Creatinine 0.63 Calcium 10.1 D Liver Function 02/20/18 Range/Units 06:43 Total Bilirubin 0.2 (0.2-1.0) mg/dL AST 9 L (15-37) U/L ALT 12 (12-78) U/L Alkaline Phosphatase 101 (45-117) U/L Albumin 2.5 L (3.4-5.0) g/dL <Eddie Sandoval L - 02/20/18 15:48> Abnormal lab results 02/20/18 02/20/18 Range/Units 06:13 06:43 WBC 13.1 H (4.0-11.0) th/mm3 RBC 2.66 L (4.50-5.90) mil/mm3 Hgb 7.6 L (13.0-17.0) gm/dL Hct 23.1 L (39.0-51.0) % Plt Count 493 H (150-450) th/mm3 Neut % (Auto) 86.9 H (16.0-70.0) % Lymph % (Auto) 7.3 L (9.0-44.0) % Neut # (Auto) 11.4 H (1.8-7.7) th/mm3 AST 9 L (15-37) U/L Albumin 2.5 L (3.4-5.0) g/dL Short CBC 02/20/18 Range/Units 06:13 WBC 13.1 H (4.0-11.0) th/mm3 Hgb 7.6 L (13.0-17.0) gm/dL Hct 23.1 L (39.0-51.0) % Plt Count 493 H (150-450) th/mm3 [facility] 02/20/18 06:43 Sodium 139 Potassium 3.8 Chloride 104 Carbon Dioxide 25.3 BUN 9 Creatinine 0.63 Calcium 10.1 D Liver Function 02/20/18 Range/Units 06:43 Total Bilirubin 0.2 (0.2-1.0) mg/dL AST 9 L (15-37) U/L ALT 12 (12-78) U/L Alkaline Phosphatase 101 (45-117) U/L Albumin 2.5 L (3.4-5.0) g/dL <Eddie Ni - 02/20/18 11:56> - Imaging Impressions Port Line Insertion 02/20/18 00:00 CONCLUSION: 1. Uncomplicated ultrasound and fluoroscopic guided implanted central venous port catheter placement as described in detail above. An 8 Irish Power port was placed. <Eddie Sandoval - 02/20/18 15:48> Physical Exam Vital signs: Vital Signs 02/19/18 16:00 02/19/18 20:00 02/20/18 00:00 Temperature 98 F 98.8 F 98.5 F Pulse Rate 60 73 80 Respiratory Rate 18 18 18 Blood Pressure 123/62 114/74 120/62 Pulse Oximetry 97 100 97 02/20/18 04:00 02/20/18 08:00 02/20/18 12:00 Temperature 97.9 F 97.3 F L 97.8 F Pulse Rate 77 75 68 Respiratory Rate 18 18 18 Blood Pressure 104/63 118/58 L 110/55 L Pulse Oximetry 95 98 97 02/20/18 13:40 02/20/18 13:55 Temperature 99.2 F Pulse Rate 105 H 98 H Respiratory Rate 18 16 Blood Pressure 145/65 H 128/67 Pulse Oximetry 91 L 91 L Intake & Output 02/19/18 02/20/18 02/20/18 18:59 06:59 18:59 Intake Total 1959 895 / 895 2300 / 2300 Balance 1959 895 / 895 2300 / 2300 Weight 56 kg Intake: IV 1000 / 1000 655 / 655 2300 / 2300 NS Inj 1,000 ML @ 105 mls/hr IV 1000 / 1000 1999 / 1999 .CONT .Q9H32M [facility] Rx#:[id number] Vancomycin Inj 1,000 MG In NS 250 / 250 Inj 250 ML @ 200 mls/hr IV.SIG NUCLEAR INSTRUCTOR [facility] Rx#:[id number] Zometa Inj 4 MG In NS Inj 150 155 / 155 ML @ 155 mls/hr IV.SIG ONCE ONE Rx#:[id number] Ancef 2 GM Premix Inj 2 gm In 50 / 50 50 ml @ 200 mls/hr IV.SIG NUCLEAR INSTRUCTOR [facility] Rx#:[id number] Oral 960 / 960 240 / 240 Other: # Voids 4 2 # Bowel Movements 1 <Eddie Sandoval - 02/20/18 15:48> Vital Signs 02/19/18 12:00 02/19/18 16:00 02/19/18 20:00 Temperature 98.8 F 98 F 98.8 F Pulse Rate 72 60 73 Respiratory Rate 18 18 18 Blood Pressure 129/60 123/62 114/74 Pulse Oximetry 99 97 100 02/20/18 00:00 02/20/18 04:00 02/20/18 08:00 Temperature 98.5 F 97.9 F 97.3 F L Pulse Rate 80 77 75 Respiratory Rate 18 18 18 Blood Pressure 120/62 104/63 118/58 L Pulse Oximetry 97 95 98 Intake & Output 02/19/18 02/20/18 02/20/18 18:59 06:59 18:59 Intake Total 1959 895 / 895 1000 / 1000 Balance 1959 895 / 895 1000 / 1000 Weight 56 kg Intake: IV 1000 / 1000 655 / 655 1000 / 1000 NS Inj 1,000 ML @ 105 mls/hr IV 1000 / 1000 1000 / 1000 .CONT .Q9H32M [facility] Rx#:[id number] Zometa Inj 4 MG In NS Inj 150 155 / 155 ML @ 155 mls/hr IV.SIG ONCE ONE Rx#:[id number] Oral 960 / 960 240 / 240 Other: # Voids 4 2 # Bowel Movements 1 <Sherly MorganEddie Ziegler Nubia 02/20/18 11:56> Narrative: GENERAL: Laying in bed, no acute distress. Uruguayan speaking with a moderate amount of Malagasy, freelance interpreter/translator used. SKIN: Warm and dry. Right lower leg amputation with clean, dry, intact wrapping. On inspection stump in nonerythematous, nontender, no purulent drainage. HEAD: Atraumatic. Normocephalic. EYES: Pupils equal and round. No scleral icterus. No injection or drainage. ENT: No nasal bleeding or discharge. Mucous membranes pink and moist. NECK: Trachea midline. No JVD. CARDIOVASCULAR: Regular rate and rhythm. RESPIRATORY: No accessory muscle use. Clear to auscultation. Breath sounds equal bilaterally. GASTROINTESTINAL: Abdomen soft, non-tender, nondistended. Hepatic and splenic margins not palpable. MUSCULOSKELETAL: Extremities without clubbing, cyanosis, or edema. No obvious deformities. NEUROLOGICAL: Awake and alert. No obvious cranial nerve deficits. Motor grossly within normal limits. PSYCHIATRIC: Appropriate mood and affect; insight and judgment normal. <Sherly MorganEddie Ziegler Nubia 02/20/18 14:48> Assessment and Plan - Assessment (1) Chest pain Code(s): R07.9 - Chest pain, unspecified Status: Acute (2) Pulmonary emboli Code(s): I26.99 - Other pulmonary embolism without acute cor pulmonale Status : Acute (3) Lung mass Code(s): R91.8 - Other nonspecific abnormal finding of lung field Status: Acute (4) Hypercalcemia Code(s): E83.52 - Hypercalcemia Status: Acute <JaimeEddie - 02/20/18 15:48> (1) Chest pain Code(s): R07.9 - Chest pain, unspecified Status: Acute Plan: Patient presented for chest pain radiating to back. CTA negative for dissection , however direct invasion of adjacent vertebrae and ribs from lung mass. Initial troponin negative. EKG negative. Chest pain likely secondary to oncologic disease. WI workup negative. -Opioid pain scale (2) Pulmonary emboli Code(s): I26.99 - Other pulmonary embolism without acute cor pulmonale Status : Acute Plan: Small left-sided pulmonary embolus. -Continue Lovenox (3) Lung mass Code(s): R91.8 - Other nonspecific abnormal finding of lung field Status: Acute Plan: Left upper lobe 6.9 cm mass. Patient reports he had had a biopsy done at [facility] in October. Unsure of type of cancer. Has not been followed outpatient. Likely cause of chest pain. Initial radiographic findings of metastases. -Medical records received from [facility]. Scanned into chart. -Oncology consulted * bone scan WNL * Follow-up PTH RP * Unable to obtain MRI due to shrapnel and face to evaluate for cord compression , clinically no evidence of cord compression * Hypercalcemia: 12.7 corrected. Zometa started. (4) Hypercalcemia Code(s): E83.52 - Hypercalcemia Status: Acute Plan: Adjusted calcium 12.7 on admission. Likely secondary to oncologic disease. Improved to normal range. -IV hydration -Follow-up PTH RP -Zometa started <Sherly MorganEddie - 02/20/18 14:44> - Attending Attestation The exam, history, and the medical decision-making described in the above note were completed with the assistance of the resident physician. I reviewed and agree with the findings presented. I attest that I had a [id number] encounter with the patient on the same day, and personally performed and documented my assessment and findings in the medical record. Discharge planning with patient: he understands need to follow up with radiation oncology and oncology for further management of lung mass. Pain is well controlled on current regimen, will send him home with 7 day supply of pain medication, which can be further managed in the outpatient setting. Port is now in place for chemotherapy. <Eddie Sandoval - 02/20/18 15:48>
[2018-02-20] MEDS ORDERED: Lidocaine 1%/Epinephrine 1:100,000 Inj 30 ML Vial ONE (12:52)
[2018-02-20] MEDS ORDERED: *Heparin Central Flush 100 UNIT/ML 5 ML Vial PERIprocedural ONLY IV.FLUSH ONE (12:53)
--- NOTE | 2018-02-20 14:03 | IR ---
EXAM DATE: 02/20/2018 1:55 PM EST AGE/SEX: 57 years / Male INDICATIONS: Patient presents with lung cancer in need of port for treatment. CLINICAL DATA: This is the patient's initial encounter. Patient reports that signs and symptoms have been present for 3 months and indicates a pain score of 7/10. MEDICAL/SURGICAL HISTORY: Carcinoma, lung. Deep venous thrombosis. . Above knee amputation of right lower extremity, facial reconstruction COMPARISON: [facility], CTA THOR ABD AORTA W CONTRAST W 3D, 02/17/2018. . FLUORO TIME (min): :38 IMAGE SERIES: 2 RADIATION DOSE: 2mGy CAK SEDATION TIME (min): 44 MEDICATION(S): 2mg midazolam (Versed) IV 100mcg fentanyl (Sublimaze) IV DEVICE(S): Right 8F Angiodynamics Power Port . . PROCEDURE : 1. Continuous pulse oximetry and EKG monitoring. 2. Intravenous conscious sedation. 3. Ultrasound guidance for venous access. 4. Fluoroscopic guided implantable central venous port placement. The patient was placed supine. The neck was prepped in sterile fashion. Full sterile technique was u sed, including cap, mask, sterile gloves and gown, and a large sterile sheet. Hand hygiene and 2% ch lorhexidine Betadine was utilized per protocol for cutaneous antisepsis with appropriate dry time for site. Sterile gel and sterile probe cover were utilized for ultrasound guidance. The skin and sub cutaneous tissues were infiltrated with local anesthetic solution. Under direct ultrasound guidance, central venous access was accomplished in the targeted vessel. The ultrasound images depicting access guidance were stored and saved to PACS for permanent record. A s ubcutaneous pocket was created using blunt dissection. The port was introduced to the pocket. The c atheter tubing was fed through a subcutaneous tunnel to the venotomy site. The catheter tubing was c ut to a suitable length and then was introduced through a valved Peel-Away sheath and positioned with catheter tubing tip at the cavo-atrial junction level. The pocket incision was closed with subcutic ular Vicryl suture. Steri-Strips were applied. The port was flushed and locked with heparin solutio n per protocol. Sterile dressing was applied to the site. The patient tolerated the procedure well. Conscious sedation was performed with the prescribed dosages and duration as above in the presence of an independent trained radiology nurse to assist in the monitoring of the patient. EKG and oximetry remained stable throughout the procedure. The patient tolerated the procedure well and there were no complications. The patient was sent to post anesthesia recovery in stable condition. CONCLUSION: 1. Uncomplicated ultrasound and fluoroscopic guided implanted central venous port catheter placement as described in detail above. An 8 Stateless Power port was placed. Electronically signed by: Asad Durán MD Board Certified Radiologist 02/20/2018 2:01 PM EST
[2018-02-20 17:51] VITALS: BP 126/66; PULSE 89; RESP 20; TEMP 97; O2SAT 97
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
== END 2018-02-20 17:59 | disposition home or self-care (01) | DRG 180 ==
LOC: NEDA 04:26 → NEPE 04:26 → NEDA 12:45 → N04 13:16
PROVIDERS: ADMIT Family Medicine; ATTEND Family Medicine
CPT/HCPCS: 36561; 71010; 71045; 71275; 72040; 74175; 74177; 75998; 76937; 77001; 78306; 80053; 82378; 82397; 82607; 82728; 82746; 83519; 83540; 83550; 83690; 83970; 84484; 85025; 85610; 85730; 93005; 97162; 99145; 99152; 99153; 99285; A9503; C1788; C9115; J0690; J1642; J1650; J2250; J2270; J3010; J3370; J3487; J3489; J7030; J7040; J7050; Q2051; Q9967